=== PATIENT | male | born 1950 | race Caucasian/White ===

== ENCOUNTER 2025-08-23 06:07 | Day surgery (SDC) | payer MEDICARE, OTHER ==
[~2025-08-23] VITALS: Ht 167.6 cm; Wt 71.0 kg
--- NOTE | ~2025-08-23 | OR ---
[facility] [address] [place], [place] [address] Draft DATE OF OPERATION: 08/23/2025 SURGEON: Kiah Shearer DPM PREOPERATIVE DIAGNOSIS: Osteophyte, right foot, talar neck. POSTOPERATIVE DIAGNOSIS: Osteophyte, right foot, talar neck. PROCEDURE: Excision of osteophyte or cheilectomy in right foot, talar neck. FIRE CONTROL SYSTEM INSTALLER: Lei Howard DPM. ANESTHESIOLOGIST: Fredis Choudhary nurse attending physician. ANESTHESIA: Local with MAC, local consisting of approximately 6 mL of 1:1 mixture, 2% lidocaine plain and 0.5% Ropivacaine plain. ESTIMATED BLOOD LOSS: Less than 5 mL or minimal. HEMOSTASIS: With an ankle tourniquet. MATERIALS USED: Bone wax, 4-0 Vicryl and 5-0 nylon. PROCEDURE IN DETAIL: The patient was brought into the operating room and placed upon the operating table in the supine position. Following IV sedation the local anesthesia was administered around the patient's right anterior ankle region. Right foot was then scrubbed, prepped and draped in the usual sterile technique. An Esmarch bandage was utilized to exsanguinate and the patient's right foot and then left wrapped around the ankle to act as tourniquet. Attention was then directed to the area just anterior to the lateral ankle region in the area of the talonavicular joint. A small 2 cm incision was performed from PATIENT NAME: PHYLLIS ALLEN OPERATIVE REPORT DATE OF : 46 REPORT #: [id number] PHYSICIAN: KIAH SHEARER DPM PCP: ZHEN BELLE PA-C REPORT IS CONFIDENTIAL AND NOT TO BE RELEASED WITHOUT AUTHORIZATION [facility] [address] [place], [place] [address] Draft superior to inferior over this area. Careful dissection through the subcutaneous tissue was then performed with tenotomy down to level of the joint capsule. Palpable osteophyte was noted in this region. An incision with #64 blade was made in the joint capsule of the talonavicular and the capsule reflected from the distal aspect of the talar head of on the dorsal lateral aspect. Osteophyte became visible in this region and it was having a shape and appearance of an inverted cone. It was attached distally however more proximal, majority of it was fried. The osteophyte was resected utilizing small osteotome and mallet. The area was then rasped with a nasal rasp and the area was flushed with copious amounts of sterile normal saline. Bone wax was then applied to the raw bone area. Joint capsule was reapproximated utilizing 4-0 Vicryl and the skin was reapproximated and coapted utilizing 5-0 nylon in the interlocking continuous suture technique. Postoperative injection consistent of 1 mL of dexamethasone phosphate and 5 mL of 0.5% Ropivacaine was injected around the anterior ankle with approximately one-third of the solution we injected directly into the ankle joint area. The surgical site was then dressed with adaptic, Betadine damp gauze, fluff gauze, Kerlix and Coban. Ankle tourniquet was removed and prompt hyperemic response was noted to all digits of the patient's right foot. The patient tolerated both procedures and the anesthesia well and was escorted to the recovery room with vital signs. Following the period of postoperative monitoring, the patient was discharged to home with both written and oral instructions. GABBY Gutierrez/JAY JAY /[id number] Copies: ~ PATIENT NAME: PHYLLIS ALLEN OPERATIVE REPORT DATE OF : 46 REPORT #: [id number] PHYSICIAN: KIAH SHEARER DPM PCP: ZHEN BELLE PA-C REPORT IS CONFIDENTIAL AND NOT TO BE RELEASED WITHOUT AUTHORIZATION
[~2025-08-23 06:07] MED LIST: ANORO ELLIPTA1 EACH INH; ARICEPT5 MG PO; BACLOFEN10 MG PO; CYCLOBENZAPRINE10 MG PO; HYDROCHLOROTH12.5 MG PO; HYDROCODON-ACE1 EAC8 PO; LACTATED RINGER'S 1,000 ML IV SCH; LAMICTAL100 MG PO; NEURONTIN300 MG PO; NORVASC5 MG PO; PERCOCET 5-3251 EACH PO; PLAVIX75 MG PO; POTASSIUM CHLO10 MEQ PO; SEROQUEL50 MG PO
[2025-08-23 06:21] VITALS: BP 126/70
[2025-08-23] MEDS ORDERED: DOXYCYCLINE MO100 MG PO (06:26)
[2025-08-23] MEDS ORDERED: DEXAMETHASONE SOD PHOS 4 MG/ML VIAL ONE (06:27)
[2025-08-23] MEDS ORDERED: Ropivacaine HCl 0.5% 30 ML VIAL ONE (06:28)
[2025-08-23] MEDS ORDERED: LIDOCAINE HCL 2% 20 ML MDV ONE (06:28)
[2025-08-23] MEDS ORDERED: LIDOCAINE HCL 1% 5 ML SDV INJ ONE (07:00)
[2025-08-23] MEDS ORDERED: IBLOOD GLUCOSE TEST STRIP 1 EA TEST VI PRN ×2 (07:00→07:45)
[2025-08-23] MEDS ORDERED: CEFAZOLIN SODIUM 1 GM in SODIUM CHLORIDE 0.9% 100 ML IV SCH (07:00)
[2025-08-23] MEDS ORDERED: LIDOCAINE HCL 2% 5 ML SDV ONE (07:02)
--- NOTE | 2025-08-23 07:35 | NUR ---
VISITED DURING SPIRITUAL CARE ROUNDS. PT SUPPORTED BY IN ROOM. BOTH IN OVERALL GOOD SPIRITS, NO IMMEDIATE NEEDS. COUNTER INSTALLER PROVIDED SUPPORTIVE PRESENCE, HOSPITALITY, PRAYER.
[2025-08-23] MEDS ORDERED: NALOXONE HCL 0.4 MG SYR IV PRN (07:45)
[2025-08-23] MEDS ORDERED: fentaNYL citrate 50 MCG/ML SDV IV PRN (07:45)
[2025-08-23] MEDS ORDERED: GLYCOPYRROLATE 1 MG/5 ML MDV ONE (07:48)
[2025-08-23] MEDS ORDERED: fentaNYL citrate 100 MCG/2 ML VIAL ONE (07:48)
--- NOTE | 2025-08-23 08:13 | NUR ---
08/23/25 0813 Amarilys Burciaga 0805 PT TO PACU SLEEPING HE RESPONDS TO STIMULI. ORAL AIRWAY IN PLACE. O2 VIA MASK FOGGING NOTED IN MASK.
[2025-08-23 09:27] VITALS: BP 127/74
--- NOTE | 2025-08-25 15:41 | PATH ---
[facility] [address] [place], [place] [address] Signed SPECIMEN(S): A TALAR NECK OSTEOPHYTE SPECIMEN SOURCE: A. TALAR NECK OSTEOPHYTE CLINICAL HISTORY: Osteophyte right foot FINAL PATHOLOGIC DIAGNOSIS: Bone, talar neck osteophyte, resection: - Benign bone with focal cartilaginous surface and adjacent synovium. - Negative for inflammation, atypia, and malignancy. - Histologic features are compatible with osteophyte. SDL MICROSCOPIC EXAMINATION: Histologic sections of all submitted blocks are examined by light microscopy. These findings, together with the gross examination, support the pathologic diagnosis. GROSS DESCRIPTION: The specimen, labeled and designated "Konrad, talar neck osteophyte," is received in formalin and consists of a pink-watt to red-brown fragment of bone (0.8 x 0.8 x 0.7 cm). The resection margin is inked blue, and the tissue is bisected to reveal watt firm cut surfaces. The specimen is submitted entirely in cassette (A1) following decalcification in Immunocal. VB (under the direct supervision of a pathologist) The Gross Description was prepared using a voice recognition system. The report was reviewed for accuracy; however, sound-alike word errors, addition and/or deletions may occur. If there are any questions about this report, please contact Client Services. ADDITIONAL NOTES: Immunohistochemical and/or in situ hybridization studies if performed in this case included appropriate positive controls that reacted as expected. This test was developed and its performance characteristics determined by [facility]. It has not been cleared or approved by the U.S. Food and Drug Administration. The FDA has determined that such clearance or approval is not necessary. This test is used for clinical purposes. It should not be regarded PATIENT NAME: PHYLLIS ALLEN PATHOLOGY DATE OF : 46 REPORT #: [id number] PHYSICIAN: GARRICK VILLANUEVA PCP: ZHEN BELLE PA-C REPORT IS CONFIDENTIAL AND NOT TO BE RELEASED WITHOUT AUTHORIZATION [facility] [address] [facility], [place] [address] Signed as investigational or for research. [facility] is certified under the Clinical Laboratory Improvement Amendments of 1988 (CLIA) as qualified to perform high complexity clinical laboratory testing. PERFORMING LABORATORY: Technical component was performed by [facility], [address] [place] [id number] (CLIA# [id number]). [facility], [address] [place] [id number] (CLIA#: [id number]). Diagnostician: Hilda Robert MD Pathologist Electronically Signed 08/25/2025 Copies: ~ PATIENT NAME: PHYLLIS ALLEN PATHOLOGY DATE OF : 46 REPORT #: [id number] PHYSICIAN: GARRICK PATHOLOGY PCP: ZHEN BELLE PA-C REPORT IS CONFIDENTIAL AND NOT TO BE RELEASED WITHOUT AUTHORIZATION
== END 2025-08-23 09:40 | disposition home or self-care (01) ==
LOC: DS 06:07
PROVIDERS: ATTEND Podiatrist Foot & Ankle Surgery
PROC: 0QBG0ZZ Excision of Right Tibia, Open Approach (ICD-10-PCS; principal; 2025-08-23 07:00)
DX: M25.774 Osteophyte, right foot (principal); M65.871 Other synovitis and tenosynovitis, right ankle and foot; M19.171 Post-traumatic osteoarthritis, right ankle and foot; I10 Essential (primary) hypertension; J44.9 Chronic obstructive pulmonary disease, unspecified; Z87.891 Personal history of nicotine dependence; Z86.73 Personal history of transient ischemic attack (TIA), and cerebral infarction without residual deficits
CPT/HCPCS: 01480; 73630; J0690; J1100; J2003; J2405; J2704; J2795; J3010; J7121